=== PATIENT | female | born 1990 | race Two or more races ===

== ENCOUNTER 2020-09-08 09:48 | Emergency (ER) | payer MEDICAID ==
[~2020-09-08] VITALS: Ht 167.6 cm; Wt 72.6 kg
[2020-09-08 11:10] VITALS: BP 129/95
== END 2020-09-08 11:30 | disposition home or self-care (01) ==
LOC: EDUNIT# 09:48 → EDBD 09:48 → ER 09:48
DX: K29.70 Gastritis, unspecified, without bleeding (principal); Z76.0 Encounter for issue of repeat prescription